=== PATIENT | male | born 1985 | race Caucasian/White ===

== ENCOUNTER 2016-10-07 18:57 | Inpatient (IN) | payer MEDICAID, OTHER ==
[~2016-10-07] VITALS: Ht 182.9 cm; Wt 67.4 kg
[~2016-10-07 18:57] MED LIST: OLAN10TA3 PO
[2016-10-07 20:19] LABS: BASOPHILS # (AUTO) 0.01 K/uL (0.00-0.20); BASOPHILS % (AUTO) 0.1 % (0.0-2.0); EOSINOPHILS # (AUTO) 0.03 K/uL (0.00-0.70); EOSINOPHILS % (AUTO) 0.27 % (1.0-6.0); HEMATOCRIT 47.8 % (41-53); HEMOGLOBIN 15.7 g/dL (13.5-17.5); LYMPHOCYTES # (AUTO) 1.9 K/uL (1.0-4.8); LYMPHOCYTES % (AUTO) 18.5 % (22.0-44.0); MEAN CORPUSCULAR HEMOGLOBIN 29.7 pg (26.0-34.0); MEAN CORPUSCULAR HGB CONC 32.9 G/dL (31.0-37.0); MEAN CORPUSCULAR VOLUME 90 fL (80-100); MONOCYTES # (AUTO) 0.8 K/uL (0.1-1.0); MONOCYTES % (AUTO) 7.6 % (2.0-9.0); NEUTROPHILS # (AUTO) 7.4 K/uL (1.8-7.7); NEUTROPHILS % (AUTO) 73.6 % (40.0-70.0); PLATELET COUNT (AUTO) 235 K/uL (150-450); RED CELL DISTRIBUTION WIDTH 13.3 % (11.5-14.5); WHITE BLOOD COUNT (AUTO) 10.1 K/uL (4.5-11.0)
[2016-10-07 20:35] LABS: ANION GAP 10 mmol/L (8-16); CALCIUM, TOTAL 9.7 mg/dL (8.8-10.5); CARBON DIOXIDE 25 mmol/L (22-29); CHLORIDE 101 mmol/L (98-107); CREATININE 0.81 mg/dL (0.60-1.30); GLOMERULAR FILTR. RATE CALC > 60 mL/min (>60); POTASSIUM 3.7 mmol/L (3.5-5.1); SODIUM SERUM 136 mmol/L (136-145); UREA NITROGEN, BLOOD 13 mg/dL (7-18)
[2016-10-07 20:42] LABS: ALANINE AMINOTRANSFERASE 23 U/L (12-78); ALBUMIN 4.7 g/dL (3.4-5.0); ASPARTATE AMINOTRANSFERASE 21 U/L (15-37); BILIRUBIN,TOTAL 0.4 mg/dL (0.1-1.0); TOTAL PROTEIN, SERUM 9.1 g/dL (6.4-8.2)
[2016-10-07] MEDS ORDERED: HALOPERIDOL 5 MG TABLET PO PRN (21:15)
[2016-10-07] MEDS ORDERED: ZOLPIDEM TARTRATE 10 MG TABLET PO PRN (21:15)
[2016-10-07] MEDS ORDERED: LORazepam 2 MG TABLET PO PRN (21:15)
[2016-10-07 21:26] LABS: APPEARANCE,URINE CLOUDY (CLEAR); GLUCOSE, URINE (UA) NEGATIVE (NEGATIVE); KETONES,URINE 15 mg/dL (NEGATIVE); LEUKOCYTE ESTERASE ,URINE NEGATIVE (NEGATIVE); PROTEIN,URINE SEE CONFIRM (NEGATIVE)
[2016-10-07] MEDS ORDERED: LORazepam 2 MG TABLET PO ONE (21:30)
[2016-10-07] MEDS ORDERED: HALOPERIDOL 5 MG TABLET PO ONE (21:30)
[2016-10-07 21:37] LABS: ADD UA MICROSCOPIC YES; OCCULT BLOOD,URINE SMALL (NEGATIVE); SQUAMOUS EPITHELIAL CELL,UR Rare /LPF (None Seen); SULFOSALICYLIC ACID,URINE 2+ (Negative)
[2016-10-07 21:38] LABS: CALCIUM OXALATE CRYSTALS,UR Many /LPF (None Seen)
[2016-10-08 00:55] VITALS: BP 127/78
[2016-10-08 00:58] VITALS: BP 127/78
[2016-10-08 08:31] VITALS: BP 116/67
[2016-10-08 16:15] VITALS: BP 129/86
[2016-10-08] MEDS: OLANZapine 10 MG TABLET PO SCH (21:04)
[2016-10-09 07:18] VITALS: BP 122/73
[2016-10-09 09:59] VITALS: BP 125/98
[2016-10-09 16:28] VITALS: BP 119/78
[2016-10-09] MEDS ORDERED: CloNIDine HCL 0.1 MG TABLET PO PRN (20:00)
[2016-10-09] MEDS ORDERED: PETROLATUM,WHITE 71 GM JELLY TP PRN (20:00)
[2016-10-09] MEDS ORDERED: BENZOCAINE/MENTHOL LOZENGE MM PRN (20:00)
[2016-10-09] MEDS ORDERED: IBUPROFEN 600 MG TABLET PO PRN (20:00)
[2016-10-09] MEDS ORDERED: BACITRACIN 28.4 GM OINTMENT TP PRN (20:00)
[2016-10-09] MEDS ORDERED: MAG HYDROX/AL HYDROX/SIMETH ES 30 ML SUSPENSION UDCUP PO PRN (20:00)
[2016-10-09] MEDS ORDERED: LOPERAMIDE HCL 2 MG CAPSULE PO PRN (20:00)
[2016-10-09] MEDS ORDERED: ACETAMINOPHEN 325 MG TABLET PO PRN (20:00)
[2016-10-09] MEDS ORDERED: MAGNESIUM HYDROXIDE SUSPENSION 30 ML UDCUP PO PRN (20:00)
[2016-10-09] MEDS ORDERED: ALBUTEROL SULFATE HFA 90 MCG/PUFF 8 GM INHALER IH PRN (20:00)
[2016-10-09] MEDS: OLANZapine 10 MG TABLET PO SCH (20:35)
[2016-10-10 00:36] VITALS: BP 114/71
[2016-10-10 08:59] VITALS: BP 111/71
[2016-10-10] MEDS: OMEPRAZOLE 20 MG CAPSULE PO SCH (09:07)
[2016-10-10] MEDS: DOCUSATE SODIUM 100 MG CAPSULE PO SCH (09:07)
[2016-10-10 09:56] LABS: CHOL/HDL RATIO 3.4 (4.2-7.3); THYROID STIMULATING HORMONE 0.85 uIU/mL (0.36-3.74)
[2016-10-10 16:00] VITALS: BP 133/85
[2016-10-10] MEDS: OLANZapine 10 MG TABLET PO SCH (20:24)
[2016-10-11 07:01] VITALS: BP 111/67
[2016-10-11] MEDS: DOCUSATE SODIUM 100 MG CAPSULE PO SCH (08:53)
[2016-10-11] MEDS: OMEPRAZOLE 20 MG CAPSULE PO SCH (08:53)
[2016-10-11] MEDS ORDERED: CHOLECALCIFEROL (VIT D3) 1,000 UNITS TABLET PO SCH (09:00)
[2016-10-11 09:16] VITALS: BP 114/68
[2016-10-11] MEDS ORDERED: DSS100 PO (13:37)
[2016-10-11] MEDS ORDERED: OMEP20 PO (13:37)
[2016-10-11] MEDS ORDERED: VITAD1000 PO (13:37)
== END 2016-10-11 14:20 | disposition home or self-care (01) | DRG 750 ==
LOC: EMS 19:00 → B2S 10-08 00:02
PROVIDERS: ADMIT Psychiatry & Neurology Psychiatry; ATTEND Psychiatry & Neurology Psychiatry
DX: F20.0 Paranoid schizophrenia (principal); R45.851 Suicidal ideations; E55.9 Vitamin D deficiency, unspecified; Z88.0 Allergy status to penicillin; Z79.899 Other long term (current) drug therapy; F11.10 Opioid abuse, uncomplicated; F15.10 Other stimulant abuse, uncomplicated; G47.00 Insomnia, unspecified; K59.00 Constipation, unspecified; Z71.51 Drug abuse counseling and surveillance of drug abuser
CPT/HCPCS: 82306; 84443; 99285; G0480